=== PATIENT | female | born 2000 | race Caucasian/White ===

== ENCOUNTER 2019-04-01 10:13 | Emergency (ER) | payer OTHER, MEDICAID ==
[~2019-04-01] VITALS: Ht 162.6 cm; Wt 84.3 kg
[2019-04-01] MEDS ORDERED: ONDANSETRON 2MG/ML, 2ML IVPush ONE (10:30)
[2019-04-01] MEDS ORDERED: SODIUM CHLORIDE FLUSH 10ML SYR IVF ONE (10:30)
[2019-04-01] MEDS ORDERED: HYDROmorphone 2 MG/ML, 1ML IVPush PRN (10:30)
[2019-04-01] MEDS ORDERED: ONDA4TAB7 PO (10:56)
[2019-04-01] MEDS ORDERED: HYDR-3240 PO (10:56)
[2019-04-01] MEDS ORDERED: [UNRECOGNIZED DRUG - CODE] PO (11:02)
[2019-04-01] MEDS ORDERED: DOCU50LI11 PO (11:02)
[2019-04-01] MEDS ORDERED: SIME125T PO (11:02)
[2019-04-01] MEDS ORDERED: ACET325C6 PO (11:02)
[2019-04-01 11:05] LABS: ALANINE AMINOTRANSFERASE 72 U/L (12-78); ALBUMIN 3.6 g/dL (3.4-5.0); ANION GAP 6 mmol/L (5-15); BASOPHILS # (AUTO) 0.01 x10^3/uL (0-0.3); BASOPHILS % (AUTO) 0 % (0-1); CALCIUM 8.8 mg/dL (8.5-10.1); CHLORIDE 111 mmol/L (98-107); CREATININE 0.82 mg/dL (0.55-1.02); EOSINOPHILS % (AUTO) 1 % (1-7); LYMPHOCYTES % (AUTO) 24 % (22-44); MD NO; MEAN CORPUSCULAR HEMOGLOBIN 29.3 pg (27.0-34.8); MEAN CORPUSCULAR HGB CONC 32.9 g/dL (32.4-35.8); MEAN CORPUSCULAR VOLUME 89.2 fL (80-100); MEAN PLATELET VOLUME 9.2 fL (7.4-10.4); MONOCYTES # (AUTO) 0.61 x10^3/uL (0-1.4); MONOCYTES % (AUTO) 8 % (2-9); NEUTROPHILS # (AUTO) 5.39 x10^3/uL (1.8-8.0); NEUTROPHILS % (AUTO) 67 % (42-75); PLATELET COUNT 209 x10^3/uL (130-400); RED CELL DISTRIBUTION WIDTH 13.9 % (9.6-15.2)
[2019-04-01 11:09] LABS: ALKALINE PHOSPHATASE 66 U/L (45-117); BILIRUBIN,TOTAL 0.5 mg/dL (0.2-1.0); TOTAL PROTEIN 6.9 g/dL (6.4-8.2)
[2019-04-01] MEDS ORDERED: HYDROmorphone 1 MG/ML, 1ML VIAL ONE (11:20)
[2019-04-01] MEDS ORDERED: ONDANSETRON 2MG/ML, 2ML ONE (11:20)
--- NOTE | 2019-04-01 11:45 | NUR ---
ZOFRAN & DILAUDID GIVEN PER EMAR. SIDE RAILS UP X2, CALL LIGHT W/IN REACH. SISTER IN ROOM. PT AWAITING CT
--- NOTE | 2019-04-01 11:46 | NUR ---
PT AMBULATORY TO & FROM [facility] W/OUT INCIDENT, GAIT SLOW & STEADY. SPINTING ABD W/ OWN PILLOW. ACCOMPANIED BY SISTER.
--- NOTE | 2019-04-01 11:53 | NUR ---
TO CT PER SHANE
[2019-04-01] MEDS ORDERED: OMNIPAQUE 350 MG/ML, 100ML BOTTLE ONE (12:09)
--- NOTE | 2019-04-01 12:18 | NUR ---
PT IN ED ROOM 22, SANDWICH IN HAND: HAD "2 BITES" OF A SANDWICH. ASKED PT TO REFRAIN FROM EATING & DRINKING UNTIL TEST RESULTS ARE BACK: PT VERBALIZED UNDERSTANDING. PT C/O LIGHTHEADEDNESS; WILL NOTIFY ERP. PT CURRENTLY IN SEMI-FOWLERS POSITION, DOESN'T WANT TO LAY FLAT. RESP EVEN & UNLABORED, SPEECH CLEAR. SIDE RAILS UP X 2, CALL LIGHT W/IN REACH, SISTER & SON IN ROOM. PT REPORTS IMPROVEMENT IN PAIN; NOW 5/10.
[2019-04-01 13:33] VITALS: BP 102/71
== END 2019-04-01 13:40 | disposition home or self-care (01) ==
LOC: ED 10:42
DX: K91.89 Other postprocedural complications and disorders of digestive system (principal); K59.00 Constipation, unspecified; Z90.49 Acquired absence of other specified parts of digestive tract
CPT/HCPCS: 36415; 74177; 80053; 83690; 84703; 85025; 96374; 96375; 99284; J1170; J2405; Q9967